=== PATIENT | female | born 1990 | race Two or more races ===

== ENCOUNTER 2017-12-25 09:00 | Outpatient (CLI) | payer OTHER | END 2017-12-25 09:13 | disposition home or self-care (01) | LOC: LAB 09:00 | DX: E11.65 Type 2 diabetes mellitus with hyperglycemia (principal); E83.52 Hypercalcemia; E21.1 Secondary hyperparathyroidism, not elsewhere classified; N39.0 Urinary tract infection, site not specified ==

== ENCOUNTER 2017-12-25 10:21 | Outpatient (CLI) | payer OTHER | END 2017-12-25 10:25 | disposition home or self-care (01) | LOC: SONOGRAMA 10:21 | DX: N20.2 Calculus of kidney with calculus of ureter (principal); N20.0 Calculus of kidney ==

== ENCOUNTER 2023-02-16 22:12 | Emergency (ER) | payer OTHER ==
[~2023-02-16] VITALS: Ht 142.2 cm; Wt 49.9 kg
[2023-02-16] MEDS ORDERED: ZESTRIL5 MG (22:28)
[2023-02-16] MEDS ORDERED: MONTELUKAST SODI4 M1 PO (22:28)
[2023-02-16] MEDS ORDERED: ATORVASTATIN CA20 MG (22:28)
[2023-02-17 00:49] LABS: PH,URINE 6.5 (5.0-8.0); URINE APPEARANCE Clear; URINE BACTERIA 15.1 uL (0.0-1933); URINE BILIRRUBIN Negative (NEGATIVE); URINE BLOOD Large; URINE COLOR Yellow; URINE EPITHELIAL CELLS 1.8 uL (0.0-38.8); URINE GLUCOSE Negative (NEGATIVE); URINE LEUKOCYTE Negative; URINE NITRATE Negative; URINE PROTEIN Negative (NEGATIVE); URINE RBC 160.6 uL (0.0-20.8); URINE UROBILINOGEN 0.2 E.U./dl; URINE WBC 5.2 uL (0.0-23.2)
[2023-02-17 00:50] LABS: HEMATOCRIT 37.4 % (36.0-45.00); HEMOGLOBIN 12.6 g/dL (12.0-15.00); MEAN CELL VOLUME 89.8 fL (80.00-100.00); MEAN CORPUSCULAR HEMOGLOBIN 30.4 pg (27.00-32.0); MEAN CORPUSCULAR HGB CONC 33.8 g/dl (32.0-36.0); PLATELET COUNT 269 K/uL (150-450); RED BLOOD COUNT 4.16 M/uL (4.00-6.00); RED CELL DISTRIBUTION WIDTH 12.7 % (11.5-14.5)
[2023-02-17 01:04] LABS: CALCIUM 9.2 mg/dL (8.5-10.1); CREATININE SERUM 0.77 mg/dL (0.55-1.02); GFR 88.02; POTASSIUM 3.72 mEq/L (3.5-5.1)
[2023-02-17] MEDS ORDERED: TAMS0.4C PO (03:31)
[2023-02-17] MEDS ORDERED: ZOFRAN8 MG PO (03:31)
[2023-02-17] MEDS ORDERED: CIPRO500 MG PO (03:31)
[2023-02-17] MEDS ORDERED: KETO10TA2 PO (03:31)
== END 2023-02-17 03:41 | disposition home or self-care (01) ==
LOC: ER 22:12
PROVIDERS: Nurse Practitioner Family
DX: R10.84 Generalized abdominal pain (principal); N20.0 Calculus of kidney

== ENCOUNTER 2023-04-06 08:22 | Emergency (ER) | payer OTHER ==
[~2023-04-06] VITALS: Ht 142.2 cm; Wt 49.4 kg
[~2023-04-06 08:22] MED LIST: ATORVASTATIN CA20 MG; CIPRO500 MG PO; KETO10TA2 PO; MONTELUKAST SODI4 M1 PO; TAMS0.4C PO; ZESTRIL5 MG; ZOFRAN8 MG PO
[2023-04-06 10:10] LABS: HEMATOCRIT 39.9 % (36.0-45.00); HEMOGLOBIN 13.7 g/dL (12.0-15.00); MEAN CORPUSCULAR HEMOGLOBIN 30.5 pg (27.00-32.0); MEAN CORPUSCULAR HGB CONC 34.3 g/dl (32.0-36.0); PLATELET COUNT 258 K/uL (150-450); RED BLOOD COUNT 4.48 M/uL (4.00-6.00); RED CELL DISTRIBUTION WIDTH 13.1 % (11.5-14.5)
[2023-04-06] MEDS ORDERED: ZIAGEN300 MG PO (10:39)
[2023-04-06] MEDS ORDERED: ABILIFY2 MG PO (10:39)
[2023-04-06 10:42] LABS: CREATININE SERUM 0.9 mg/dL (0.55-1.02); GFR 73.03; POTASSIUM 3.6 mEq/L (3.5-5.1)
[2023-04-06 11:00] LABS: PH,URINE 6.5; URINE BILIRRUBIN NEGATIVE (NEGATIVE); URINE BLOOD LARGE; URINE GLUCOSE NEGATIVE (NEGATIVE); URINE LEUKOCYTE MODERATE; URINE NITRATE POSITIVE
[2023-04-06 11:36] LABS: URINE APPEARANCE BLOODY; URINE COLOR RED; URINE PROTEIN >=300 (NEGATIVE); URINE RBC LOADED /HPF; URINE WBC 0-2 /hpf
[2023-04-06 11:37] LABS: URINE BACTERIA SOME; URINE MUCUS SCANT
[2023-04-06 11:38] LABS: URINE EPITHELIAL CELLS 0-4 /HPF
== END 2023-04-06 14:06 | disposition home or self-care (01) ==
LOC: ER 08:23
PROVIDERS: Emergency Medicine
DX: R31.9 Hematuria, unspecified (principal); Z96.0 Presence of urogenital implants